=== PATIENT | female | born 1945 | race Caucasian/White ===

== ENCOUNTER 2017-01-02 00:57 | Emergency (ER) | payer OTHER ==
--- NOTE | 2017-01-02 01:03 | PDOC ---
History of Present Illness - General History Source: Patient Exam Limitations: No Limitations - History of Present Illness Initial Comments: 01/02/17 01:42 The patient is a 71 y/o female, with no significant PMHx, who presents to ED with left-sided lower back pain that began yesterday. Pt describes the pain as constant, nonradiating, and sharp in sensation. She does report doing some crutches today but states that she did not overdo the ab workout. She denies any fever, chills, nausea, vomiting, diarrhea, or abdominal pain. PCP: Dr. Thakkar <Marina Osman - Last Filed: 01/02/17 01:42> <Melania Cedillo - Last Filed: 01/02/17 03:51> - General Stated Complaint: BACK PAIN Time Seen by Provider: 01/02/17 01:02 Past History <Marina Osman - Last Filed: 01/02/17 01:42> - Past Medical History Suicide Attempt (Hx): No - Immunization History Td Vaccination: Yes TDAP Vaccination: Yes Immunization Up to Date: Yes - Psycho/Social/Smoking Cessation Hx Anxiety: No Suicidal Ideation: No Smoking Status: No Smoking History: Never smoked Years of Tobacco Use: 0 Number of Cigarettes Smoked Daily: 0 Cigars Per Day: 0 Hx Alcohol Use: No Drug/Substance Use Hx: No Substance Use Type: None <Melania Cedillo - Last Filed: 01/02/17 03:51> - Past Medical History Allergies/Adverse Reactions: Allergies Allergy/AdvReac Type Severity Reaction Status Date / Time No Known Allergies Allergy Verified 01/02/17 01:07 Home Medications: Ambulatory Orders Ibuprofen [Motrin -] 600 mg PO TID #30 tablet 01/02/17 Tamsulosin HCl [Flomax] 0.4 mg PO DAILY #14 cap.er.24h 01/02/17 Review of Systems - Review of Systems Able to Perform ROS?: Yes Comments:: 01/02/17 01:43 GENERAL/CONSTITUTIONAL: No fever or chills. No weakness. HEAD, EYES, EARS, NOSE AND THROAT: No change in vision. No ear pain or discharge. No sore throat. CARDIOVASCULAR: No chest pain or shortness of breath. RESPIRATORY: No cough, wheezing, or hemoptysis. GASTROINTESTINAL: No nausea, vomiting, diarrhea or constipation. GENITOURINARY: No dysuria, frequency, or change in urination. MUSCULOSKELETAL: No joint swelling or pain. No neck pain. +back pain SKIN: No rash NEUROLOGIC: No headache, vertigo, loss of consciousness, or change in strength/ sensation. ENDOCRINE: No increased thirst. No abnormal weight change. HEMATOLOGIC/LYMPHATIC: No anemia, easy bleeding, or history of blood clots. ALLERGIC/IMMUNOLOGIC: No hives or skin allergy. <Marina Osman - Last Filed: 01/02/17 01:42> *Physical Exam - Vital Signs Last Vital Signs Temp Pulse Resp BP Pulse Ox 97.5 F L 67 18 175/96 100 01/02/17 01:07 01/02/17 01:07 01/02/17 01:07 01/02/17 01:07 01/02/17 01:07 - Physical Exam Comments: 01/02/17 01:53 GENERAL: Awake, alert, and fully oriented, in no acute distress HEAD: No signs of trauma ENT: Auricles normal inspection, hearing grossly normal, nares patent, oropharynx clear EYES: PERRLA, EOMI, sclera anicteric, conjunctiva clear without exudates. Moist mucosa. NECK: Normal ROM, supple, no lymphadenopathy, JVD, or masses LUNGS: Breath sounds equal, clear to auscultation bilaterally. No wheezes, and no crackles HEART: Regular rate and rhythm, normal S1 and S2, no murmurs, rubs or gallops ABDOMEN: Soft, nontender, normoactive bowel sounds. No guarding, no rebound. No pulsatile mass in abdomen. MSK:Straight leg test negative on both sides. +No flank pain with percussion. Flank pain with deep palpation. EXTREMITIES: Normal range of motion, no edema. No clubbing or cyanosis. No cords, erythema, or tenderness. NEUROLOGICAL: Cranial nerves II through XII grossly intact. Normal speech, normal gait SKIN: Warm, Dry, normal turgor, no rashes or lesions noted <Marina Osman - Last Filed: 01/02/17 01:42> Medical Decision Making - Medical Decision Making 01/02/17 03:45 Pt comes with complaind of left flank pain and abd bloating. She states that she was using her ab roller. She doesnt think that she strained her muscles. She has normal straight leg raise. SHe has no dysuria and denies any history of renal stones. Pt will have L spine CT scan to r/o nerve injury or impingement, as she describes the paraspinal left flank pain as a burning sensation. I want to make sure that pt has no herniated disks. CT L spine normal. Pt has fullness of the renal collecting system and a 3mm stone in the ureter. UA was ordered and I see that pt has no UTI, only hematuria, which is consistent with a kidney stone. Pt will be treated with flomax and advised to drink liquids and motrin for the pain. Follow with urology. Pt admits now that she has been having dysuria and that she saw a urology specialist at [facility], and that she can follow with him. Earlier she told me that the specialist she followed with at [facility] was a " stomach doctor" Now she tells me that he is a urologist, and that she has a history of kidney stones. <Melania Cedillo - Last Filed: 01/02/17 03:51> *DC/Admit/Observation/Transfer - Attestations Scribe Attestion: 01/02/17 01:59 Documentation prepared by Marina Osman, acting as medical assistant ob gyn for Melania Cedillo MD. <Marina Osman - Last Filed: 01/02/17 01:42> - Discharge Dispostion Admit: No <Melania Cedillo - Last Filed: 01/02/17 03:51> Diagnosis at time of Disposition: Flank pain, Kidney stone - Discharge Dispostion Disposition: HOME Condition at time of disposition: Stable - Prescriptions Prescriptions: Tamsulosin HCl [Flomax] 0.4 mg PO DAILY #14 cap.er.24h Ibuprofen [Motrin -] 600 mg PO TID #30 tablet - Referrals Referrals: Ana Paula Thakkar MD [Primary Care Provider] - - Patient Instructions Printed Discharge Instructions: DI for Flank Pain, DI for Kidney Stones
[2017-01-02] MEDS ORDERED: KETOROLAC TROMETHAMINE 60 MG/2 ML VIAL IM ONE ×2 (01:12→03:41)
[2017-01-02] MEDS ORDERED: METHOCARBAMOL 500 MG TABLET PO ONE (01:13)
[2017-01-02] MEDS ORDERED: METHOCARBAMOL 500 MG TABLET ONE (01:18)
[2017-01-02] MEDS ORDERED: KETOROLAC TROMETHAMINE 60 MG/2 ML VIAL ONE ×2 (01:18→03:45)
[2017-01-02 01:32] VITALS: BP 175/96; PULSE 67; TEMP 97.5; BMI 27.1
[2017-01-02 03:02] LABS: URINE APPEARANCE CLEAR; URINE BILIRUBIN NEGATIVE (NEGATIVE); URINE COLOR STRAW; URINE GLUCOSE (UA) NEGATIVE (NEGATIVE); URINE KETONE NEGATIVE (NEGATIVE); URINE LEUK ESTERASE NEGATIVE (NEGATIVE); URINE NITRITE NEGATIVE (NEGATIVE); URINE PROTEIN NEGATIVE (NEGATIVE); URINE UROBILINOGEN NEGATIVE E.U./dl (0.2-1.0)
[2017-01-02 03:03] LABS: URINE BLOOD 1+ (NEGATIVE)
[2017-01-02 03:04] LABS: URINE BACTERIA MANY /hpf (NONE SEEN); URINE RBC 7 /hpf (0-3); URINE WBC 3 /hpf (3-5)
[2017-01-02] MEDS ORDERED: TAMSULOSIN HCL 0.4 MG CAP.ER.24H (FP) PO ONE (03:41)
[2017-01-02] MEDS ORDERED: TAMSULOSIN HCL 0.4 MG CAP.ER.24H (FP) ONE (03:45)
== END 2017-01-02 03:53 | disposition home or self-care (01) ==
LOC: JER 00:57
PROC: 3E0233Z Introduction of Anti-inflammatory into Muscle, Percutaneous Approach (ICD-10-PCS; principal; 2017-01-02)
PROC: 3E0233Z Introduction of Anti-inflammatory into Muscle, Percutaneous Approach (ICD-10-PCS; 2017-01-02)
DX: N20.0 Calculus of kidney (principal); R31.9 Hematuria, unspecified
CPT/HCPCS: 72131-TC; 81003; 81015; 99281-25

== ENCOUNTER 2018-04-13 07:08 | Day surgery (SDC) | payer OTHER ==
[2018-04-13 08:34] VITALS: TEMP 98
[2018-04-13 09:19] VITALS: BP 141/58; PULSE 56
--- NOTE | 2018-04-14 10:50 | PATH ---
Surgical Pathology Report Patient Name: LINDA CABRERA [facility]. Rec. #: [id number] /Age/Gender: 1945 (Age: 72) / F Account: [id number] Location: [facility]-ENDOSCOPY Taken: 04/13/2018 Received: 04/13/2018 Reported: 04/14/2018 Physicians: Michael Neely M.D. Specimen(s) Received A: BX RIGHT COLON POLYP B: BX TRANSVERSE COLON POLYP Clinical History Family history of colon adenomas, colon cancer screening Postoperative diagnosis: Diverticulosis, colon polyp Final Diagnosis A. RIGHT COLON POLYP, BIOPSY: POLYPOID COLONIC MUCOSA WITH NO DIAGNOSTIC ABNORMALITIES. B. TRANSVERSE COLON POLYP, POLYPECTOMY: HYPERPLASTIC POLYP. Electronically Signed Amber Yeager M.D. Gross Description A. Received in formalin, labeled "polyp right colon" is a zhou, irregular portion of soft tissue measuring 0.4 cm. in greatest dimension. The specimen is submitted in toto in one cassette. B. Received in formalin, labeled "polyp transverse colon" are 2 zhou, irregular portions of soft tissue averaging 0.3 cm. in greatest dimension. The specimens are submitted in toto in one cassette. /04/13/2018 saudi04/13/2018
== END 2018-04-13 09:40 | disposition home or self-care (01) ==
LOC: JASU-ENDO 07:08
PROVIDERS: ATTEND Internal Medicine Gastroenterology
PROC: 0DBK8ZX Excision of Ascending Colon, Via Natural or Artificial Opening Endoscopic, Diagnostic (ICD-10-PCS; 2018-04-13)
PROC: 0DBL8ZX Excision of Transverse Colon, Via Natural or Artificial Opening Endoscopic, Diagnostic (ICD-10-PCS; principal; 2018-04-13 08:00)
DX: Z12.11 Encounter for screening for malignant neoplasm of colon (principal); K64.8 Other hemorrhoids; K57.30 Diverticulosis of large intestine without perforation or abscess without bleeding; D12.2 Benign neoplasm of ascending colon; D12.3 Benign neoplasm of transverse colon; Z83.71 Family history of colonic polyps
CPT/HCPCS: 88305-TC

== ENCOUNTER → 2022-08-26 | Day surgery (SDC) | payer OTHER | END | disposition home or self-care (01) | LOC: JRADUS-SUR 08:15 | PROVIDERS: ATTEND Obstetrics & Gynecology | PROC: 0H9U3ZX Drainage of Left Breast, Percutaneous Approach, Diagnostic (ICD-10-PCS; principal; 2022-08-26) | DX: N60.12 Diffuse cystic mastopathy of left breast (principal) | CPT/HCPCS: 19083; 87899; 88305-TC; A4648 ==

== ENCOUNTER 2023-01-08 04:22 | Day surgery (SDC) | payer OTHER ==
[2023-01-06 11:25] VITALS: BMI 29.8
[2023-01-08 10:22] VITALS: TEMP 98
[2023-01-08 11:02] VITALS: BP 152/65; PULSE 59; RESP 18
== END 2023-01-08 11:05 | disposition home or self-care (01) ==
LOC: JASU-ENDO 04:22
PROVIDERS: ATTEND Internal Medicine Gastroenterology
PROC: 0DBL8ZX Excision of Transverse Colon, Via Natural or Artificial Opening Endoscopic, Diagnostic (ICD-10-PCS; 2023-01-08)
PROC: 0DBH8ZX Excision of Cecum, Via Natural or Artificial Opening Endoscopic, Diagnostic (ICD-10-PCS; principal; 2023-01-08 10:00)
DX: Z12.11 Encounter for screening for malignant neoplasm of colon (principal); D12.0 Benign neoplasm of cecum; D12.5 Benign neoplasm of sigmoid colon; K64.8 Other hemorrhoids; K57.30 Diverticulosis of large intestine without perforation or abscess without bleeding; Z86.010 Personal history of colon polyps; Z83.71 Family history of colonic polyps
CPT/HCPCS: 88305-TC

== ENCOUNTER 2024-08-09 04:40 | Day surgery (SDC) | payer OTHER ==
[2024-08-08 11:15] VITALS: BMI 26.4
[2024-08-09 10:15] VITALS: TEMP 97.8
[2024-08-09 10:51] VITALS: BP 149/60; PULSE 60; RESP 19
== END 2024-08-09 11:20 | disposition home or self-care (01) ==
LOC: JASU-ENDO 04:40
PROVIDERS: ATTEND Internal Medicine Gastroenterology
PROC: 0DBL8ZX Excision of Transverse Colon, Via Natural or Artificial Opening Endoscopic, Diagnostic (ICD-10-PCS; 2024-08-09)
PROC: 0DBP8ZX Excision of Rectum, Via Natural or Artificial Opening Endoscopic, Diagnostic (ICD-10-PCS; 2024-08-09)
PROC: 0DBM8ZX Excision of Descending Colon, Via Natural or Artificial Opening Endoscopic, Diagnostic (ICD-10-PCS; 2024-08-09)
PROC: 0DBK8ZX Excision of Ascending Colon, Via Natural or Artificial Opening Endoscopic, Diagnostic (ICD-10-PCS; principal; 2024-08-09 10:00)
DX: Z12.11 Encounter for screening for malignant neoplasm of colon (principal); D12.3 Benign neoplasm of transverse colon; D12.8 Benign neoplasm of rectum; D12.4 Benign neoplasm of descending colon; D12.2 Benign neoplasm of ascending colon; K64.8 Other hemorrhoids; Z86.0100 Personal history of colon polyps, unspecified